=== PATIENT | male | born 1980 ===

== ENCOUNTER 2017-02-06 16:37 | Emergency (ER) | payer OTHER ==
[2017-02-06 16:37] VITALS: BMI 25.8
[2017-02-06 16:59] VITALS: RESP 18
[2017-02-06 17:01] VITALS: TEMP 97.6
[2017-02-06] MEDS ORDERED: Sodium Chloride 0.9% 1,000 ML IV STA (17:41)
[2017-02-06 17:58] LABS: ADD MANUAL DIFF? NO
[2017-02-06 18:12] LABS: ALB/GLOB RATIO 1.2 (1.1-1.8); ALKALINE PHOSPHATASE 53 U/L (38-133); ALT/SGPT 38 U/L (7-56); AST/SGOT 33 U/L (15-59); BILIRUBIN,TOTAL 0.9 mg/dL (0.2-1.3); BLOOD UREA NITROGEN 19 mg/dL (7-21); CALCIUM 9.4 mg/dL (8.4-10.5); CARBON DIOXIDE 33 mmol/L (21-33); CHLORIDE 98 mmol/L (98-107); GFR AFRICAN-AMERICAN > 60; GLUCOSE,RANDOM 95 mg/dL (70-110); POTASSIUM 4.3 mmol/L (3.6-5.0); SODIUM 140 mmol/L (132-148); TOTAL PROTEIN 8.3 g/dL (5.8-8.3)
[2017-02-06 18:36] LABS: BASO # 0.03 K/mm3 (0.0-2.0); BASO % 0.5 % (0.0-3.0); EOS % 0.5 % (1.5-5.0); GRAN # 3.55 (1.4-6.5); GRAN % 57.8 % (50.0-68.0); HEMATOCRIT 45.2 % (42.0-52.0); LYMPH # 2.2 (1.2-3.4); LYMPH % 35.2 % (22.0-35.0); MEAN CELL VOLUME 86.9 fL (80.0-105.0); MEAN CORPUSCULAR HEMOGLOBIN 30.6 pg (25.0-35.0); MEAN CORPUSCULAR HGB CONC 35.2 g/dl (31.0-37.0); MEAN PLATELET VOLUME 10.5 fl (7.0-11.0); MONO # 0.4 (0.1-0.6); PLATELET COUNT 240 10^3/uL (120.0-450.0); RED CELL DISTRIBUTION WIDTH 12.9 % (11.5-14.5); WHITE BLOOD COUNT 6.1 10^3/ul (4.5-11.0)
--- NOTE | 2017-02-06 18:55 | ED PDOC ---
Arrival/HPI - General Chief Complaint: Male Genitourinary Time Seen by Provider: 02/06/17 16:50 Historian: Patient - History of Present Illness Narrative History of Present Illness (Text): 02/06/17 18:37 37-year-old male presents today with back pain and neck pain. Patient denies any trauma or injury. Patient states he was in the [place] and had intercourse and the condom broke. Patient states he developed a rash to the groin and was seen by a physician and treated with abx and antivirals per patient. pt shows picture of vesicle type rash to groin that was treated. pt states he isnt sure of the medications that he was taking. pt states he has been having chills/night sweats at home. denies dysuria, urinary frequency, urgency; denies hematuria, denies penile discharge. pt states rash resolved but then about 1 week ago patient developed low back pain bilaterally that has been intermittent. pt also c/o 3 day history of left sided neck. pt states he woke up with the pain. no medications have been taking for pain at home. Past Medical History - Provider Review Nursing Documentation Reviewed: Yes - Travel History Have you recently traveled outside [place] w/in the past 3 mons?: No - Infectious Disease Hx of Infectious Diseases: None - Tetanus Immunization Tetanus Immunization: Unknown - Psychiatric Hx Substance Use: No - Surgical History Other/Comment: jaw surgery - Anesthesia Hx Anesthesia: No Hx Anesthesia Reactions: No Hx Malignant Hyperthermia: No Family/Social History - Physician Review Nursing Documentation Reviewed: Yes Family/Social History: Unknown Family HX Smoking Status: Never Smoked Hx Alcohol Use: Yes Hx Substance Use: No Allergies/Home Meds Allergies/Adverse Reactions: Allergies No Known Allergies Allergy (Verified 12/30/16 23:45) Review of Systems - Review of Systems Constitutional: Night Sweats. absent: Fatigue ENT: absent: Sore Throat, Sinus Congestion Respiratory: absent: SOB, Cough Cardiovascular: absent: Chest Pain, Palpitations Gastrointestinal: absent: Abdominal Pain, Nausea, Vomiting Genitourinary Male: absent: Dysuria, Frequency, Hematuria Musculoskeletal: Back Pain, Neck Pain. absent: Arthralgias Skin: Rash. absent: Pruritis Neurological: absent: Headache, Dizziness Psychiatric: absent: Anxiety, Depression Physical Exam Vital Signs Reviewed: Yes Vital Signs Temp Pulse Resp BP Pulse Ox 02/06/17 19:09 68 18 112/69 98 02/06/17 17:00 97.6 F 62 18 117/87 97 02/06/17 16:56 98.1 F 61 18 121/74 100 Temperature: Afebrile Blood Pressure: Normal Pulse: Regular Respiratory Rate: Normal Appearance: Positive for: Well-Appearing, Non-Toxic, Comfortable Pain Distress: None Mental Status: Positive for: Alert and Oriented X 3 - Systems Exam Head: Present: Atraumatic Mouth: Present: Moist Mucous Membranes Neck: Present: Trachea Midline. No: Normal Range of Motion (stiff rom of neck with pain), Meningeal Signs, MIDLINE TENDERNESS, Paraspinal Tenderness Respiratory/Chest: Present: Clear to Auscultation, Good Air Exchange. No: Respiratory Distress, Accessory Muscle Use Cardiovascular: Present: Regular Rate and Rhythm, Normal S1, S2. No: Murmurs Abdomen: Present: Normal Bowel Sounds. No: Tenderness, Distention, Peritoneal Signs, Rebound, Guarding Back: Present: Normal Inspection. No: CVA Tenderness, Midline Tenderness, Paraspinal Tenderness Upper Extremity: Present: Normal Inspection, Normal ROM Lower Extremity: Present: Normal Inspection, Normal ROM Neurological: Present: GCS=15, Speech Normal, Motor Func Grossly Intact, Normal Sensory Function, Gait Normal Skin: Present: Warm, Dry, Normal Color. No: Rashes Psychiatric: Present: Alert, Oriented x 3 Medical Decision Making ED Course and Treatment: 02/06/17 18:57 37-year-old male with subjective chills/night sweats, with neck and back pain. History of recent travel. CBC wnl CMP wnl CPK wnl Urinalysis wnl 02/06/17 20:02 pt non toxic well appearing; no distress. denies back pain while in the ER. discussed all results with patient in depth pt seen and evaluated by dr. de la torre. pt non toxic well appearing; no distress. afebrile. no meningeal signs. pt wants to go home. denies fever/chills currently. denies back pain. c/o neck pain only with movement up or to the left. impression; neck pain, back pain motrin every 6 hours as needed for pain increase fluids follow up with your primary care physician REYES. RETURN IMMEDIATELY if signs of infection develop; high fevers, increasing pain, headaches, dizziness, weakness. - Lab Interpretations Lab Results: 02/06/17 17:53 02/06/17 17:53 Lab Results 02/06/17 17:57: Total Creatine Kinase 117 02/06/17 17:53: WBC 6.1, RBC 5.20, Hgb 15.9, Hct 45.2, MCV 86.9, MCH 30.6, MCHC 35.2, RDW 12.9, Plt Count 240, MPV 10.5, Gran % 57.8, Lymph % (Auto) 35.2 H, [place] % (Auto) 6.0, Eos % (Auto) 0.5 L, Baso % (Auto) 0.5, Gran # 3.55, Lymph # 2.2, [place] # 0.4, Eos # 0.0, Baso # 0.03, Sodium 140, Potassium 4.3, Chloride 98 , Carbon Dioxide 33, Anion Gap 13, BUN 19, Creatinine 1.0, Est GFR ( Amer ) > 60, Est GFR (Non-Af Amer) > 60, Random Glucose 95, Calcium 9.4, Total Bilirubin 0.9, AST 33, ALT 38, Alkaline Phosphatase 53, Total Protein 8.3, Albumin 4.5, Globulin 3.8, Albumin/Globulin Ratio 1.2 02/06/17 17:00: Urine Color Yellow, Urine Appearance Clear, Urine pH 7.0, Ur Specific [place] 1.020, Urine Protein Negative, Urine Glucose (UA) Negative, Urine Ketones Negative, Urine Blood Negative, Urine Nitrate Negative, Urine Bilirubin Negative, Urine Urobilinogen 0.2, Ur Leukocyte Esterase Negative - Medication Orders Current Medication Orders: Discontinued Medications Sodium Chloride (Sodium Chloride 0.9%) 1,000 mls @ 999 mls/hr IV .Q1H1M STA Stop: 02/06/17 18:41 Last Admin: 02/06/17 17:55 Dose: 999 MLS/HR eMAR Start Stop Document 02/06/17 17:55 HI (Rec: 02/06/17 17:55 IL [id number]) Intravenous Solution Start Date 02/06/17 Start Time 17:55 End Date 02/06/17 End time 18:55 Total Infusion Time 60 Ketorolac Tromethamine (Toradol) 30 mg IVP STAT STA Stop: 02/06/17 18:06 Last Admin: 02/06/17 18:37 Dose: 30 MG IVP Administration Document 02/06/17 18:37 HI (Rec: 02/06/17 18:37 [place] [id number]) Charges for Administration # of IVP Administrations 1 Disposition/Present on Arrival - Present on Arrival Any Indicators Present on Arrival: No History of DVT/PE: No History of Uncontrolled Diabetes: No Urinary Catheter: No History of Decub. Ulcer: No History Surgical Site Infection Following: None - Disposition Have Diagnosis and Disposition been Completed?: Yes Diagnosis: Neck pain, Back pain Disposition: HOME/ ROUTINE Disposition Time: 20:31 Patient Plan: Discharge Patient Problems: Current Active Problems Problem Status Diagnosed Back pain Acute Neck pain Acute Condition: GOOD Additional Instructions: motrin every 6 hours as needed for pain increase fluids follow up with your primary care physician REYES. RETURN IMMEDIATELY if signs of infection develop; high fevers, increasing pain, headaches, dizziness, weakness. Prescriptions: Ibuprofen [Motrin] 600 mg PO Q6H PRN #20 tab PRN Reason: pain/fever reduction Referrals: Ian Otero MD [Primary Care Provider] - Follow up with primary Forms: WORK NOTE
[2017-02-06 19:09] VITALS: BP 112/69; PULSE 68; O2SAT 98
[2017-02-06 19:46] LABS: URINE BILIRUBIN NEGATIVE (NEGATIVE); URINE BLOOD NEGATIVE (NEGATIVE); URINE GLUCOSE (UA) NEGATIVE (NEGATIVE); URINE KETONE NEGATIVE (NEGATIVE); URINE LEUKOCYTE ESTERASE NEGATIVE Leu/uL (NEGATIVE); URINE PROTEIN NEGATIVE mg/dL (<30 mg/dL); URINE UROBILINOGEN 0.2 E.U./dL (<1 E.U./dL)
[2017-02-06 20:02] LABS: URINE APPEARANCE CLEAR (CLEAR); URINE COLOR YELLOW (YELLOW)
== END 2017-02-06 20:38 | disposition home or self-care (01) ==
LOC: ED 16:37
DX: M54.2 Cervicalgia (principal); M54.9 Dorsalgia, unspecified
CPT/HCPCS: 80053; 81003; 82550; 85025; 87491; 87591; 96361; 96374; 99284; J1885; J7040